=== PATIENT | male | born 1985 | race Caucasian/White ===

== ENCOUNTER 2021-11-14 11:55 | Emergency (ER) | payer MEDICARE ==
[2021-11-14 12:49] LABS: HEMOGLOBIN 15.7 gm/dl (14.0-17.5); RED BLOOD COUNT 5.1 M/UL (4.20-5.50); WHITE BLOOD COUNT 11.8 K/UL (4.5-11.0)
[2021-11-14 13:06] LABS: BUN/CREATININE RATIO 16 (0-10)
== END 2021-11-14 15:10 | disposition home or self-care (01) ==
LOC: ER1 11:55
PROVIDERS: Nurse Practitioner
DX: R42 Dizziness and giddiness (principal); M79.672 Pain in left foot; F17.210 Nicotine dependence, cigarettes, uncomplicated
CPT/HCPCS: 73630; 80053; 80307; 81001; 85025; 99284; G0480

== ENCOUNTER → 2021-11-16 | Outpatient (CLI) | payer MEDICARE | LOC: EMI 14:45 | DX: S52.121A Displaced fracture of head of right radius, initial encounter for closed fracture (principal); M79.89 Other specified soft tissue disorders | CPT/HCPCS: 73221 ==